=== PATIENT | female | born 1990 | race Caucasian/White ===

== ENCOUNTER 2016-06-13 21:12 | Emergency (ER) | payer BC ==
[~2016-06-13] VITALS: Ht 172.7 cm; Wt 83.8 kg
[~2016-06-13 21:12] MED LIST: DPPI400; SULFAMETHOXAZOLE; TRIMETHOPRIM
[2016-06-13 21:17] VITALS: Ht 172.7 cm; Wt 83.8 kg
--- NOTE | 2016-06-13 21:52 | DIAGNOSTIC IMAGING REPORT ---
CT HEAD WITHOUT CONTRAST (CT) CLINICAL HISTORY: Head trauma. Loss of consciousness. COMPARISON STUDY: 01/11/2008 TECHNIQUE: Axial CT of the brain is performed from the vertex to the skull base. IV contrast was not administered for this examination. CT DOSE: 537.48 mGy.cm FINDINGS: No intra or extra-axial mass lesions are visualized. There is no CT evidence of acute cortical infarction. There is no evidence of midline shift. There is no acute hemorrhage. No calvarial fractures are visualized. There is no evidence of pathologic ventricular dilatation. There is no evidence of acute sinusitis IMPRESSION: Normal noncontrast head CT. Electronically signed by: Ken Banks M.D. 06/13/2016 9:50 PM Dictated Date/Time: 06/13/2016 9:49 PM
--- NOTE | 2016-06-13 22:01 | DIAGNOSTIC IMAGING REPORT ---
LEFT ANKLE MIN 3 VIEWS ROUTINE CLINICAL HISTORY: Left ankle pain status post trauma COMPARISON: None. DISCUSSION: No fractures or dislocations are visualized. The ankle mortise appears intact on these nonstress views. IMPRESSION: No fractures or dislocations identified. Electronically signed by: Ken Banks M.D. 06/13/2016 9:59 PM Dictated Date/Time: 06/13/2016 9:59 PM
--- NOTE | 2016-06-13 22:01 | DIAGNOSTIC IMAGING REPORT ---
LEFT FOOT MIN 3 VIEWS ROUTINE CLINICAL HISTORY: Left foot pain status post trauma COMPARISON: None. DISCUSSION: No fractures or dislocations are visualized. IMPRESSION: No fractures identified. Electronically signed by: Ken Banks M.D. 06/13/2016 10:00 PM Dictated Date/Time: 06/13/2016 10:00 PM
--- NOTE | 2016-06-13 22:09 | EMERGENCY ROOM VISIT NOTE ---
History First contact with patient: 21:21 Chief Complaint: HEAD INJURY (MINOR) Stated Complaint: LEFT FOOT PAIN/INJURY, RT SIDE HEAD INJURY History of Present Illness The patient is a 25 year old female who presents to the Emergency Room via private vehicle accompanied by boyfriend with complaints of "left foot pain/ injury, right side head injury ". The patient states that 1 hour prior to arrival she was sitting on her bed, with her left foot underneath her and her left foot fell asleep/became numb. She states that she went to move to allow blood flow to return to this area, and in doing so stepped onto the floor. When she stepped down the left foot was still numb, therefore she placed weight on it and it hurt a crack in the left ankle as it inverted, causing her to fall forward striking the right side of her head off of the doorknob. This was witnessed by her boyfriend, who states the patient was unconscious for 1-1/2-2 minutes after striking her head. He denies any seizure-like activity. The patient did not urinate or bite her tongue. She has minimal headache, and her head feels fuzzy. No light sensitivity. She denies any nausea, vomiting, chest pain, shortness of breath, neck pain. She denies chance of . Review of Systems A complete 10-point Review of Systems was discussed with the patient, with pertinent positives and negatives listed in the History of Present Illness. All remaining Review of Systems questions can be considered negative unless otherwise specified. Past Medical/Surgical History Cpvgm-Zdhjdlvcf-Mrfpe syndrome. Family History Diabetes, heart disease, high blood pressure, cancer, lung disease. Social History Smoking Status: Never Smoker Social History: Patient lives at home with parents, denies tobacco products but admits to alcohol use. Current/Historical Medications No Active Prescriptions or Reported Meds Allergies Coded Allergies: No Known Allergies (Unverified Allergy, Mild, 05/01/06) Physical Exam Vital Signs Date Time Temp Pulse Resp B/P Pulse Ox O2 Delivery O2 Flow Rate FiO2 06/13/16 22:35 36.8 107 18 126/72 98 06/13/16 22:06 107 18 126/72 98 Room Air 06/13/16 21:19 18 06/13/16 21:17 36.8 111 18 132/72 98 Room Air Physical Exam VITAL SIGNS - Vital signs and nursing notes were reviewed. Patient is afebrile , normotensive, slightly tachycardic at a rate of 111 bpm, and is saturating well on room air 98%. GENERAL -25-year-old female appearing her stated age. Communicates well with provider and answers questions appropriately. SKIN - Gross examination of the entire body surface demonstrates no lacerations. HEAD - Normocephalic, Atraumatic. No Tavarez's Sign or Raccoon's Eyes. No depressed skull fractures palpable. EYES - PERRL with EOMI bilaterally. Without subconjunctival hemorrhage. Palpebral conjunctiva pink and moist with no injection. EARS - No deformities of external structures noted on gross examination bilaterally. No hemotympanum present. No tympanic perforation noted. Handle of malleus, umbo, cone of light, pars tensa/flaccid all easily visualized. NOSE - Midline and without cyanosis. No epistaxis or clear watery discharge noted. Septum midline without deviation. No septal hematoma noted. No overlying ecchymosis noted. MOUTH/OROPHARYNX - Without perioral cyanosis. Tongue midline with equal elevation of palate bilaterally. No blood noted in the oropharynx. No tonsillar hypertrophy, erythema, or exudates noted. No dental fractures noted. NECK -no tenderness to palpation over the cervical spinous processes. No cervical paraspinal muscle tenderness noted. LUNGS - Chest wall symmetric without accessory muscle use, intercostals retractions, or central cyanosis. CTA B/L. No wheezes, rales, or rhonchi appreciated. CARDIAC - RRR with S1/S2. No murmur, rubs, or gallops appreciated. EXTREMITIES - No gross deformities noted of the extremities. There is tenderness palpation overlying the left lower ankle. +5/5 strength noted in UE/ LE bilaterally. NEUROLOGIC - Cranial nerves II through XII grossly intact. Sensory intact to light touch throughout. PSYCH - Pt is very pleasant and interacts well with examiner. Medical Decision & Procedures ER Provider Diagnostic Interpretation: LEFT ANKLE MIN 3 VIEWS ROUTINE CLINICAL HISTORY: Left ankle pain status post trauma COMPARISON: None. DISCUSSION: No fractures or dislocations are visualized. The ankle mortise appears intact on these nonstress views. IMPRESSION: No fractures or dislocations identified. Electronically signed by: Ken Banks M.D. 06/13/2016 9:59 PM Dictated Date/Time: 06/13/2016 9:59 PM LEFT FOOT MIN 3 VIEWS ROUTINE CLINICAL HISTORY: Left foot pain status post trauma COMPARISON: None. DISCUSSION: No fractures or dislocations are visualized. IMPRESSION: No fractures identified. Electronically signed by: Ken Banks M.D. 06/13/2016 10:00 PM Dictated Date/Time: 06/13/2016 10:[address] HEAD WITHOUT CONTRAST (CT) CLINICAL HISTORY: Head trauma. Loss of consciousness. COMPARISON STUDY: 01/11/2008 TECHNIQUE: Axial CT of the brain is performed from the vertex to the skull base. IV contrast was not administered for this examination. CT DOSE: 537.48 mGy.cm FINDINGS: No intra or extra-axial mass lesions are visualized. There is no CT evidence of acute cortical infarction. There is no evidence of midline shift. There is no acute hemorrhage. No calvarial fractures are visualized. There is no evidence of pathologic ventricular dilatation. There is no evidence of acute sinusitis IMPRESSION: Normal noncontrast head CT. Electronically signed by: Ken Banks M.D. 06/13/2016 9:50 PM Dictated Date/Time: 06/13/2016 9:49 PM Medical Decision Patient was seen and evaluated as above. After obtaining a thorough history and physical examination I did explain to the patient that I felt a CT of the head was warranted given that she lost consciousness from this head injury. I also elected to obtain radiographs of the left foot and ankle secondary to subjective and objective examination findings. Patient did not want anything for pain. CT scan, and foot and ankle radiographs were negative. Patient was told that she may have a mild concussion, however her only symptoms at this time are slight fuzziness, and a mild headache. She does have a history of concussions in the past. She was offered crutches and gel ankle splint for the left ankle however declined. She is to follow-up with her family doctor regarding today's visit. She was educated upon management of these findings, had questions prior to discharge, was educated upon worrisome symptoms in which to return, and was discharged home in good condition. In the evaluation and treatment of this patient, the following differential diagnoses were considered: Ankle Fracture, Ankle Sprain, Distal Fibula Fracture , Distal Tibia Fracture, Foot Fracture, Maisonneuve Fracture, Concussion, Contrecoup Injury, Brain Tumor, Depression, Encephalitis, Hypothyroidism, Meningitis, CVA, TIA, Migraine, Cluster Headache, Intracranial Abnormality, Intracranial Hemorrhage, Subdural Hematoma, Subarachnoid Hemorrhage, Hydrocephalus, among others. Impression Primary Impression: Closed head injury Additional Impression: Left ankle sprain Departure Information Dispostion Home / Self-Care Condition GOOD Prescriptions No Active Prescriptions or Reported Meds Referrals No Doctor, Assigned (PCP) Vikas Morales D.O. Patient Instructions My [facility] Additional Instructions You have been treated in the Emergency Department for a Closed Head Injury. CT Scan of your head/brain demonstrated no acute bleeding or other abnormalities. This does not completely rule out the risk for future damage to the brain. For pain control, you can use the following [id number]-[id number]-[id number] medicines (if >12 yo): - Regular strength (325mg/tab) Tylenol (acetaminophen) 2 tabs every 4-6 hours as needed. Do not exceed 12 tablets in a 24 hour period. Avoid taking more than 4 grams (4000 mg) of Tylenol per day. This includes any other sources of acetaminophen you may take on a regular basis. - Regular strength (200 mg/tab) Advil (ibuprofen) 1-2 tabs every 4-6 hours as needed. Do not exceed a dose of 3200 mg per day. You should relax in a quiet, dark place for the rest of the day. Avoid any possible triggers including: cigarette smoke, caffeine, nicotine, chocolate, wine, beer, loud noises or music, or bright lights. You should schedule a follow-up appointment in 2-3 days with your Primary Care Provider or established Neurologist for further evaluation and treatment of your Headache. Return to the Emergency Department if your current symptoms worsen despite treatment course outlined above, or if you develop any of the following symptoms : intractable pain despite aforementioned treatment course, visual disturbances , loss of vision, unilateral weakness or facial drooping, slurring of speech, loss of coordination, or loss of consciousness. ANKLE: You have been treated in the Emergency Department for a left Ankle injury. If this is a recent injury (<24 hrs), ice can be applied to the area of pain for the first 3 days to help decrease pain and inflammation. You have been provided the number for an Orthopaedic Surgeon. You should call this number as soon as possible to establish a follow-up visit from today's Emergency Department visit. Keep the ankle brace/splint in place until cleared by Orthopedics. You have respectfully declined crutches and a brace. Return to the Emergency Department if your current symptoms worsen despite treatment course outlined above, or if you develop any of the following symptoms : intractable pain despite aforementioned treatment course or new onset of numbness or tingling of the foot. Problem Qualifiers Primary Impression: Closed head injury Encounter type: initial encounter Qualified Codes: S09.90XA - Unspecified injury of head, initial encounter Additional Impression: Left ankle sprain Encounter type: initial encounter
[2016-06-13 22:35] VITALS: BP 126/72; PULSE 107; TEMP 36.8; O2SAT 98
== END 2016-06-13 22:35 | disposition home or self-care (01) ==
LOC: C.EDB 21:13 → C.EDD 22:35
DX: S09.90XA Unspecified injury of head, initial encounter (principal); S93.402A Sprain of unspecified ligament of left ankle, initial encounter; W18.39XA Other fall on same level, initial encounter; Y92.003 Bedroom of unspecified non-institutional (private) residence as the place of occurrence of the external cause; Y99.8 Other external cause status

== ENCOUNTER 2018-12-19 07:35 | Inpatient (IN) ==
[2018-12-19] MEDS ORDERED: OXYTOCIN 30 UNITS/500 ML BAG IV PRN ×2 (07:48→17:42)
[2018-12-19 08:06] LABS: Hemoglobin 9.4 g/dL (12.0-16.0); Mean Corpuscular Hemoglobin 24.9 pg (25-34); Mean Corpuscular Volume 79.4 fL (80-100); Platelet Count 225 K/uL (130-400); RDW Coefficient of Variation 14.9 % (11.5-14.5); RDW Standard Deviation 42.6 fL (36.4-46.3); Red Blood Count 3.78 M/uL (4.2-5.4); White Blood Count 11.82 K/uL (4.8-10.8)
[2018-12-19 08:07] LABS: Mean Corpuscular Hgb Conc 31.3 g/dL (32-36)
[2018-12-19] MEDS: LACTATED RINGER'S 1,000 ML IV PRN ×2 (08:25→09:18)
[2018-12-19] MEDS ORDERED: BUPIVACAINE 0.25% 30 ML VIAL ONE (08:37)
[2018-12-19] MEDS ORDERED: fentaNYL citrate 100 MCG/2 ML VIAL ONE (08:38)
[2018-12-19] MEDS ORDERED: ePHEDrine sulfate 50 MG/ML AMP ONE (08:38)
[2018-12-19] MEDS ORDERED: fentaNYL 2MCG/ML ROPIV 1.25MG/ML 100 ML BAG EPI ONE ×2 (08:38→15:53)
--- NOTE | 2018-12-19 08:43 | History & Physical Report ---
Date of Service December 19, 2018 Assessment & Plan (1) : not in active labor at this time admit to L&D, epidural upon request expectant management (2) Supervision of normal first : (3) Rh negative status during : History of Present Illness Primary Care Provider: Severino Maurer MD Ms Welsh is a 28 y/o female ; at 39 3/7 weeks; no complications with this . frequently attended OB appointments with [facility]; started feeling contractions around 4am this morning following loss of mucus plug; has had good movement; no additional fluid loss; no vaginal blood loss Labs: blood type: A negative Rh: received rhogam in office antibody screen: negative H.4 Hct: 30 WBC: 11.8 Plt: 225 Rubella: negative VDRL/RPR: negative Gonorrhea: negative Chlamydia: negative HIV: negative HbSAg: negative GBS: negative normal Glucose tolerance test at 28 weeks Allergies Allergy/AdvReac Type Severity Reaction Status Date / Time No Known Allergies Allergy Mild Verified 12/16/18 11:09 Home Medications Home Medications Medication Instructions Recorded Confirmed Type PNV cmb#95-ferrous fumarate-FA 1 tab PO HS 09/26/18 12/19/18 History [] Past Med/Surg History Medical History No pertinent past medical history Surgical History History of colposcopy with cervical biopsy History of oral surgery Family History Aunt No problems noted. Mother Hypertension Thyroid disease Uncle Family history of diabetes mellitus Other Breast cancer Colorectal cancer Stroke Social History Preferred Language: [place] Communication Ability: Effective Beliefs That Will Affect Care: None marital status: Current Living Situation: Spouse Other Information That Helps Us Care for You: No Feels Safe at Home: Yes Safety Concerns: Feels Safe At This Time Smoking Status: Never smoker Do You Dip or Chew Tobacco: No ; Second Hand Exposure: No ; Hx Alcohol Use: No Hx Substance Use: No Review of Systems Review of Systems: Constitutional: denies fever; chills; sweats; headache Respiratory: denies shortness of breath, difficulty breathing Cardiac: denies chest pain; palpitations; chest pressure Breast: denies breast pain : denies dysuria Physical Exam Physical Exam: General: alert; oriented; no acute distress Cardiac: RRR; no m/g/r Respiratory: CTAB a/p; no wheezes/rales/rhonchi; no increased work of breathing; symmetrical chest rise; no respiratory distress Genitourinary: Manual OB Exam: + cervical dilation 3 cm, + cervical effacement 90% and + station -1 OB Exam Monitor Tracing: + external FHT monitor used and + category I Results & Data Vital Signs (Past 12 Hours) Vital Signs Temp Pulse Resp BP 12/19/18 08:05 68 130/84 12/19/18 07:48 36.5 C 20 Laboratory Results 12/19/18 Range/Units 07:53 WBC 11.82 H (4.8-10.8) K/uL RBC 3.78 L (4.2-5.4) M/uL Hgb 9.4 L (12.0-16.0) g/dL Hct 30.0 L (37-47) % MCV 79.4 L (80-100) fL MCH 24.9 L (25-34) pg MCHC 31.3 L (32-36) g/dL RDW Std Deviation 42.6 (36.4-46.3) fL RDW Coeff of Michelle 14.9 H (11.5-14.5) % Plt Count 225 (130-400) K/uL MPV 11.0 H (7.4-10.4) fL 12/19/18 Range/Units 07:53 WBC 11.82 H (4.8-10.8) K/uL RBC 3.78 L (4.2-5.4) M/uL Hgb 9.4 L (12.0-16.0) g/dL Hct 30.0 L (37-47) % MCV 79.4 L (80-100) fL MCH 24.9 L (25-34) pg MCHC 31.3 L (32-36) g/dL RDW Std Deviation 42.6 (36.4-46.3) fL RDW Coeff of Michelle 14.9 H (11.5-14.5) % Plt Count 225 (130-400) K/uL MPV 11.0 H (7.4-10.4) fL Medications Administered Current Inpatient Medications Diphenhydramine HCl (Benadryl) 25 mg IV Q6H PRN PRN Reason: Itching Stop: 12/20/18 09:28 Ephedrine Sulfate (Ephedrine Sulfate) 10 mg IV Q5M PRN PRN Reason: Hypotension Stop: 12/20/18 09:28 Oxytocin (Pitocin) 30 units in 500 mls @ 333.333 mls/hr IV .Q1H30M PRN; Protocol PRN Reason: Bleeding Control Stop: 01/18/19 07:47 Lactated Ringer's (Lr) 1,000 mls @ 125 mls/hr IV .Q8H PRN; Protocol PRN Reason: L&D Protocol Stop: 12/21/18 07:47 Last Admin: 12/19/18 09:18 Dose: 999 mls/hr Documented by: Naloxone HCl 1 mg/ Sodium (Chloride) 1,002.5 mls @ 50 mls/hr IV .Q20H3M PRN PRN Reason: itching or nausea Stop: 12/20/18 09:28 Nalbuphine HCl (Nubain) 5 mg IV Q10M PRN PRN Reason: itching or nausea Stop: 12/20/18 09:28 Naloxone HCl (Narcan) 0.1 mg IV UD PRN PRN Reason: respiratory depression Stop: 12/20/18 09:28 Ropivacaine (Epidural (L&D)) 100 ml EPI PRN PRN; Protocol PRN Reason: Pain R/T Labor Stop: 12/20/18 09:28 Code Status & VTE Plan VTE Prophylaxis Plan VTE Prophylaxis will be ordered: No Supervising Physician Co-Signing Physician Notes Resident Physician Supervision Note: I was present with Dr. Lobo during the history and exam. I discussed the case with the resident and agree with the findings and plan as documented in the note. Any exceptions or clarifications are listed here: 28yo @ 39 3/7 in spontaneous labor. Admit to L&D, [facility]/[place]. IV fluids. Labs. OK for epidural when she desires. Documented By: Ines Ellington DO PG Care Time/CCT Total # of Minutes Spent Total Time Spent with Patient: Total time spent is greater than 50% in coordination of care (as documented) at patient's floor/unit and/or counseling patient: Resident Activity Tracking Resident Involvement: Resident Care Provided Care Provided: OB Delivery
--- NOTE | 2018-12-19 09:28 | Anesthesiology Consultation ---
Date of Service December 19, 2018 Assessment & Plan Chart Review Chart Review: Acceptable Risk for Labor Epidural Consults Requested none History Height/Weight Height: 5 ft 6 in Weight: 89.358 kg Allergies Allergy/AdvReac Type Severity Reaction Status Date / Time No Known Allergies Allergy Mild Verified 12/16/18 11:09 Medications Home Medications Medication Instructions Recorded Confirmed Last Taken PNV cmb#95-ferrous fumarate-FA 1 tab PO HS 09/26/18 12/19/18 12/18/18 09:00 [] Active Medications Generic Name Dose Route Start Last Admin Trade Name Freq PRN Reason Stop Dose Admin Lactated Ringer's 1,000 mls @ 125 mls/hr 12/19/18 07:48 12/19/18 09:18 Lr IV 12/21/18 07:47 999 mls/hr .Q8H PRN Administration L&D Protocol Protocol Past Medical History Medical History No pertinent past medical history Past Family History Family History Aunt No problems noted. Mother Hypertension Thyroid disease Uncle Family history of diabetes mellitus Other Breast cancer Colorectal cancer Stroke Past Surgical History Surgical History History of colposcopy with cervical biopsy History of oral surgery Social History Smoking Status: Never smoker Do You Dip or Chew Tobacco: No Hx Alcohol Use: No Alcohol type: beer and wine alcohol intake frequency: a few times a week Hx Substance Use: No Physical Exam Vital Signs Last Vital Signs Temp 36.7 C 12/19/18 08:52 Pulse 72 12/19/18 09:25 Resp 20 12/19/18 09:22 BP 116/64 12/19/18 09:24 Pulse Ox 98 12/19/18 09:25 Testing Laboratory Results 12/19/18 07:53
[2018-12-19] MEDS ORDERED: NALOXONE HCL 1 MG in SODIUM CHLORIDE 0.9% 1000ML 1,000 ML IV PRN (09:29)
[2018-12-19] MEDS ORDERED: DiphenhydrAMINE HCL 50 MG/ML VIAL IV PRN (09:29)
[2018-12-19] MEDS ORDERED: ePHEDrine sulfate 50 MG/ML AMP IV PRN (09:29)
[2018-12-19] MEDS ORDERED: NALBUPHINE HCL INJ 10 MG/ML AMP IV PRN (09:29)
[2018-12-19] MEDS ORDERED: fentaNYL 2MCG/ML ROPIV 1.25MG/ML 100 ML BAG EPI PRN (09:29)
[2018-12-19] MEDS ORDERED: NALOXONE HCL 0.4 MG/1 ML VIAL/CARP IV PRN (09:29)
[2018-12-19] MEDS ORDERED: ONDANSETRON INJ 2 MG/ML 2 ML VIAL IV PRN (14:03)
--- NOTE | 2018-12-19 14:52 | Labor Progress Brief Note ---
Date of Service December 19, 2018 Subjective Reason For Note: Routine Evaluation comfortable with epidural Assessment & Plan (1) Supervision of normal first : - tracing Cat II - doing well Physical Exam Genitourinary: Cervix: 9/100/(+)1, AROM clear Results & Data Vital Signs (Past 12 Hours) Vital Signs Temp Pulse Resp BP Pulse Ox 12/19/18 14:46 90 139/74 12/19/18 14:45 86 94 12/19/18 14:44 83 86 L 12/19/18 14:40 76 98 12/19/18 14:38 90 85 L 12/19/18 14:35 76 95 12/19/18 14:33 84 86 L 12/19/18 14:30 71 136/78 99 12/19/18 14:25 77 100 12/19/18 14:21 91 H 89 L 12/19/18 14:20 78 99 12/19/18 14:16 76 131/73 12/19/18 14:15 73 98 12/19/18 14:10 86 91 12/19/18 14:05 79 86 L 12/19/18 14:00 87 95 12/19/18 13:58 87 85 L 12/19/18 13:55 74 96 12/19/18 13:50 68 98 12/19/18 13:46 68 135/83 12/19/18 13:45 72 100 12/19/18 13:40 67 99 12/19/18 13:35 76 97 12/19/18 13:31 70 139/78 12/19/18 13:30 65 99 12/19/18 13:25 67 99 12/19/18 13:20 67 100 12/19/18 13:17 65 144/84 H 12/19/18 13:15 79 99 12/19/18 13:10 69 99 12/19/18 13:05 62 98 12/19/18 13:01 65 139/80 12/19/18 13:00 75 98 12/19/18 12:55 72 100 12/19/18 12:50 71 98 12/19/18 12:46 71 148/83 H 12/19/18 12:45 86 99 12/19/18 12:40 65 100 12/19/18 12:35 76 95 12/19/18 12:31 66 138/81 12/19/18 12:30 64 98 12/19/18 12:25 71 97 12/19/18 12:22 84 85 L 12/19/18 12:20 80 94 12/19/18 12:17 73 109/70 12/19/18 12:15 89 94 12/19/18 12:12 77 86 L 12/19/18 12:10 74 97 12/19/18 12:05 76 98 12/19/18 12:01 79 84 L 12/19/18 12:00 76 18 119/70 97 12/19/18 11:55 78 99 12/19/18 11:50 78 99 12/19/18 11:46 74 128/68 12/19/18 11:45 75 99 12/19/18 11:40 74 99 12/19/18 11:35 74 99 12/19/18 11:31 74 121/71 12/19/18 11:30 79 99 12/19/18 11:28 98.2 F 20 12/19/18 11:25 82 97 12/19/18 11:20 73 98 12/19/18 11:16 71 136/79 12/19/18 11:15 78 93 12/19/18 11:13 67 88 L 12/19/18 11:10 57 L 96 12/19/18 11:05 59 L 96 12/19/18 11:00 74 106/63 97 12/19/18 10:55 61 96 12/19/18 10:50 61 96 12/19/18 10:46 55 L 106/62 12/19/18 10:45 59 L 97 12/19/18 10:40 59 L 100 12/19/18 10:35 62 100 12/19/18 10:30 62 122/73 99 12/19/18 10:25 75 99 12/19/18 10:20 60 98 12/19/18 10:15 60 113/69 98 12/19/18 10:10 61 99 12/19/18 10:05 69 99 12/19/18 10:01 63 127/88 12/19/18 10:00 70 97 12/19/18 09:55 66 96 12/19/18 09:50 78 97 12/19/18 09:45 67 120/70 97 12/19/18 09:42 91 H 113/67 12/19/18 09:40 79 99 12/19/18 09:39 71 116/70 12/19/18 09:35 87 97 12/19/18 09:32 64 112/64 12/19/18 09:30 75 109/61 99 12/19/18 09:28 70 18 118/64 12/19/18 09:26 71 115/65 12/19/18 09:25 72 98 12/19/18 09:24 73 116/64 12/19/18 09:22 73 20 113/68 12/19/18 09:20 73 126/81 98 12/19/18 09:18 75 124/76 12/19/18 09:16 75 124/77 12/19/18 09:15 77 99 12/19/18 09:14 83 122/74 12/19/18 09:12 97 H 92 12/19/18 09:10 85 98 12/19/18 09:05 67 99 12/19/18 09:00 60 100 12/19/18 08:58 79 90 12/19/18 08:55 70 100 12/19/18 08:52 98.1 F 60 20 127/79 12/19/18 08:50 70 99 12/19/18 08:05 68 130/84 12/19/18 07:48 97.7 F 20
--- NOTE | 2018-12-19 16:20 | Labor Progress Brief Note ---
Date of Service December 19, 2018 Assessment & Plan (1) Supervision of normal first : -tracing Cat II - begin 2nd stage Physical Exam Genitourinary: Cervix: Complete/(+)2 Results & Data Vital Signs (Past 12 Hours) Vital Signs Temp Pulse Resp BP Pulse Ox 12/19/18 16:17 84 86 L 12/19/18 16:16 84 146/116 H 12/19/18 16:15 91 H 98 12/19/18 16:10 92 H 89 L 12/19/18 16:09 87 89 L 12/19/18 16:05 78 99 12/19/18 16:01 79 135/73 12/19/18 16:00 79 96 12/19/18 15:56 98.4 F 80 20 87 L 12/19/18 15:55 77 95 12/19/18 15:50 81 98 12/19/18 15:45 73 133/77 99 12/19/18 15:40 76 97 12/19/18 15:35 82 96 12/19/18 15:31 75 124/71 12/19/18 15:30 79 94 12/19/18 15:25 72 97 12/19/18 15:20 82 97 12/19/18 15:16 73 131/74 12/19/18 15:15 73 97 12/19/18 15:10 71 98 12/19/18 15:05 70 97 12/19/18 15:00 99 H 125/73 98 12/19/18 14:57 97 H 88 L 12/19/18 14:55 84 94 12/19/18 14:51 106 H 88 L 12/19/18 14:50 73 98 12/19/18 14:46 90 139/74 12/19/18 14:45 86 94 12/19/18 14:44 83 86 L 12/19/18 14:40 76 98 12/19/18 14:38 90 85 L 12/19/18 14:35 76 95 12/19/18 14:33 84 86 L 12/19/18 14:30 71 136/78 99 12/19/18 14:25 77 100 12/19/18 14:21 91 H 89 L 12/19/18 14:20 78 99 12/19/18 14:16 76 131/73 12/19/18 14:15 73 98 12/19/18 14:10 86 91 12/19/18 14:05 79 86 L 12/19/18 14:00 87 95 12/19/18 13:58 87 85 L 12/19/18 13:55 74 96 12/19/18 13:50 68 98 12/19/18 13:46 68 135/83 12/19/18 13:45 72 100 12/19/18 13:40 67 99 12/19/18 13:35 76 97 12/19/18 13:31 70 139/78 12/19/18 13:30 65 99 12/19/18 13:25 67 99 12/19/18 13:20 67 100 12/19/18 13:17 65 144/84 H 12/19/18 13:15 79 99 12/19/18 13:10 69 99 12/19/18 13:05 62 98 12/19/18 13:01 65 139/80 12/19/18 13:00 75 98 12/19/18 12:55 72 100 12/19/18 12:50 71 98 12/19/18 12:46 71 148/83 H 12/19/18 12:45 86 99 12/19/18 12:40 65 100 12/19/18 12:35 76 95 12/19/18 12:31 66 138/81 12/19/18 12:30 64 98 12/19/18 12:25 71 97 12/19/18 12:22 84 85 L 12/19/18 12:20 80 94 12/19/18 12:17 73 109/70 12/19/18 12:15 89 94 12/19/18 12:12 77 86 L 12/19/18 12:10 74 97 12/19/18 12:05 76 98 12/19/18 12:01 79 84 L 12/19/18 12:00 76 18 119/70 97 12/19/18 11:55 78 99 12/19/18 11:50 78 99 12/19/18 11:46 74 128/68 12/19/18 11:45 75 99 12/19/18 11:40 74 99 12/19/18 11:35 74 99 12/19/18 11:31 74 121/71 12/19/18 11:30 79 99 12/19/18 11:28 98.2 F 20 12/19/18 11:25 82 97 12/19/18 11:20 73 98 12/19/18 11:16 71 136/79 12/19/18 11:15 78 93 12/19/18 11:13 67 88 L 12/19/18 11:10 57 L 96 12/19/18 11:05 59 L 96 12/19/18 11:00 74 106/63 97 12/19/18 10:55 61 96 12/19/18 10:50 61 96 12/19/18 10:46 55 L 106/62 12/19/18 10:45 59 L 97 12/19/18 10:40 59 L 100 12/19/18 10:35 62 100 12/19/18 10:30 62 122/73 99 12/19/18 10:25 75 99 12/19/18 10:20 60 98 12/19/18 10:15 60 113/69 98 12/19/18 10:10 61 99 12/19/18 10:05 69 99 12/19/18 10:01 63 127/88 12/19/18 10:00 70 97 12/19/18 09:55 66 96 12/19/18 09:50 78 97 12/19/18 09:45 67 120/70 97 12/19/18 09:42 91 H 113/67 12/19/18 09:40 79 99 12/19/18 09:39 71 116/70 12/19/18 09:35 87 97 12/19/18 09:32 64 112/64 12/19/18 09:30 75 109/61 99 12/19/18 09:28 70 18 118/64 12/19/18 09:26 71 115/65 12/19/18 09:25 72 98 12/19/18 09:24 73 116/64 12/19/18 09:22 73 20 113/68 12/19/18 09:20 73 126/81 98 12/19/18 09:18 75 124/76 12/19/18 09:16 75 124/77 12/19/18 09:15 77 99 12/19/18 09:14 83 122/74 12/19/18 09:12 97 H 92 12/19/18 09:10 85 98 12/19/18 09:05 67 99 12/19/18 09:00 60 100 12/19/18 08:58 79 90 12/19/18 08:55 70 100 12/19/18 08:52 98.1 F 60 20 127/79 12/19/18 08:50 70 99 12/19/18 08:05 68 130/84 12/19/18 07:48 97.7 F 20
--- NOTE | 2018-12-19 16:55 | Delivery Summary ---
Vaginal Delivery Summary Date of Service December 19, 2018 Findings: Viable female with Apgars of 9 and 10 baby delivered over an intact perineum cord blood samples obtained placenta delivered spontaneously, estimated blood loss 300 cc. Labor course: Ms Welsh is a 28 y/o female ; at 39 3/7 weeks; no complications with this . frequently attended OB appointments with [facility] group; started feeling contractions around 4am this morning following loss of mucus plug; has had good movement; no additional fluid loss; no vaginal blood loss Labs: blood type: A negative Rh: received rhogam in office antibody screen: negative H.4 Hct: 30 WBC: 11.8 Plt: 225 Rubella: negative VDRL/RPR: negative Gonorrhea: negative Chlamydia: negative HIV: negative HbSAg: negative GBS: negative normal Glucose tolerance test at 28 weeks Upon admission patient was 3 cm dilated with a category 2 tracing. The patient requested and received an epidural from anesthesia. Over the next 5 hours the patient progressed to full dilatation. Artificial rupture of membranes for clear fluid. She began her second stage. She pushed for approximately 15 minutes delivering the viable female . Cord blood samples were obtained placenta delivered spontaneously. Inspection of the perineum showed superficial lacerations but nothing needing repair. Estimated blood loss 300 cc. Sponge and needle count was correct.
--- NOTE | 2018-12-19 17:20 | Anesthesia Procedure Note ---
Date of Service December 19, 2018 Anesthesia Post Epidural Note Vital Signs Vital Signs: Temp Pulse Resp BP Pulse Ox 36.9 C 79 20 144/67 H 95 12/19/18 15:56 12/19/18 17:15 12/19/18 15:56 12/19/18 17:15 12/19/18 17:05 Pain Intensity Abdomen: Pain Intensity: 7 Notes Mental Status: alert / awake / arousable Nausea / Vomiting: adequately controlled Pain: adequately controlled Airway Patency, RR, SpO2: stable & adequate BP & HR: stable & adequate Hydration State: stable & adequate Neuraxial Anesthesia: was administered and sensory block is resolving Anesthetic Complications: no major complications apparent and Pt Satisfied with anesthetic care Epidural: Removed without complications and With tip intact
[2018-12-19] MEDS ORDERED: DIPHTHERIA/TETANUS/PERTUSSIS 0.5 ML SYR/VIAL IM ONE (17:42)
[2018-12-19] MEDS ORDERED: SUPERCREAM 0.870% 15 GM JAR EXT PRN (17:42)
[2018-12-19] MEDS ORDERED: OXYCODONE/ACETAMINOPHEN 5mg/325mg TAB PO PRN (17:42)
[2018-12-19] MEDS ORDERED: OXYTOCIN 20 UNITS in LACTATED RINGER'S 1,000 ML IV SCH (17:42)
[2018-12-19] MEDS ORDERED: BENZOCAINE 20% AER SPR 82.5 GM CAN EXT PRN (17:42)
[2018-12-19] MEDS ORDERED: HYDROCORTISONE ACETATE 25 MG SUPP PR PRN (17:42)
[2018-12-20 06:42] LABS: Hematocrit (blood only) 25.2 % (37-47); Mean Corpuscular Hemoglobin 25.3 pg (25-34); Mean Corpuscular Hgb Conc 31.7 g/dL (32-36); Mean Corpuscular Volume 79.7 fL (80-100); Mean Platelet Volume 11.3 fL (7.4-10.4); Platelet Count 192 K/uL (130-400); RDW Standard Deviation 43.6 fL (36.4-46.3); Red Blood Count 3.16 M/uL (4.2-5.4); White Blood Count 12.36 K/uL (4.8-10.8)
--- NOTE | 2018-12-20 07:05 | Obstetrical Progress Note ---
Date of Service <Jc Lobo MD - Last Filed: 12/20/18 07:05> December 20, 2018 Assessment & Plan <Jc Lobo MD - Last Filed: 12/20/18 07:05> (1) : 12/19 PPD#1 feels well, voiding well, ambulating well within room will continue routine care after discharge will have 6 week follow-up Subjective <Jc Lobo MD - Last Filed: 12/20/18 07:05> Ms Welsh is a 28 y/o female ; PPD #1 following spontaneous vaginal delivery at 39+ weeks; doing well this morning; having some mild abdominal cramping/pain; voiding well; tolerating meals overnight; and able to ambulate some; some persistent spotting with intermittent improvement this morning. Review of Systems Constitutional: denies fever; chills; sweats; headache Respiratory: denies shortness of breath, difficulty breathing Cardiac: denies chest pain; palpitations; chest pressure Breast: denies breast pain : denies dysuria Physical Exam <Jc Lobo MD - Last Filed: 12/20/18 07:05> General: alert; oriented; no acute distress Cardiac: RRR; no m/g/r Respiratory: CTAB a/p; no wheezes/rales/rhonchi; no increased work of breathing; symmetrical chest rise; no respiratory distress Abdomen: soft; NT/ND; bowel sounds positive Uterus: uterine fundus firm; palpable 1cm below umbilicus Lower extrem: no lower extremity edema or swelling; no deep calf pain; Lesly's sign negative b/l Results & Data <Jc Lobo MD - Last Filed: 12/20/18 07:05> Vital Signs (Past 12 Hours) Vital Signs Temp Pulse Pulse Resp BP BP 12/20/18 03:50 36.4 C L 73 18 115/76 12/20/18 01:00 36.6 C 68 18 111/74 12/19/18 20:45 37.0 C 82 16 110/66 12/19/18 20:16 37.0 C 82 16 110/66 12/19/18 19:46 76 126/74 12/19/18 19:16 86 116/61 12/19/18 19:05 37.1 C 83 16 114/65 Laboratory Results 12/20/18 12/19/18 Range/Units 06:11 07:53 WBC 12.36 H 11.82 H (4.8-10.8) K/uL RBC 3.16 L 3.78 L (4.2-5.4) M/uL Hgb 8.0 L 9.4 L (12.0-16.0) g/dL Hct 25.2 L 30.0 L (37-47) % MCV 79.7 L 79.4 L (80-100) fL MCH 25.3 24.9 L (25-34) pg MCHC 31.7 L 31.3 L (32-36) g/dL RDW Std Deviation 43.6 42.6 (36.4-46.3) fL RDW Coeff of Michelle 15.0 H 14.9 H (11.5-14.5) % Plt Count 192 225 (130-400) K/uL MPV 11.3 H 11.0 H (7.4-10.4) fL Medications Administered Current Inpatient Medications Benzocaine (Dermoplast Pain Relieving [place]) 1 appln EXT PRN PRN PRN Reason: Perineal Discomfort Stop: 01/18/19 17:41 Cocaine HCl (Supercream 0.870%) 1 gm EXT BID PRN PRN Reason: Hemorrhoidal Inflammation Stop: 01/02/19 17:41 Docusate Sodium (Colace) 100 mg PO DAILY@08,21 [facility] Stop: 01/19/19 20:59 Ferrous Sulfate (Feosol) 325 mg PO DAILY@08 [facility] Stop: 01/19/19 07:59 Hydrocortisone (Anusol Hc) 25 mg [place] BID PRN PRN Reason: Hemorrhoidal Inflammation Stop: 01/18/19 17:41 Oxytocin 20 units/ Lactated (Ringer's) 1,002 mls @ 125 mls/hr IV .Q8H1M [facility] Stop: 01/18/19 17:41 Last Admin: 12/19/18 19:20 Dose: Not Given Documented by: Oxytocin (Pitocin) 30 units in 500 mls @ 333.333 mls/hr IV .Q1H30M PRN; Protocol PRN Reason: Bleeding Control Stop: 01/18/19 17:41 Ibuprofen (Motrin) 600 mg PO Q4H PRN PRN Reason: Pain/MUÑOZ/Cramping/Fever Stop: 01/18/19 17:41 Oxycodone/Acetaminophen (Percocet 5mg/325mg) 1 tab PO Q4H PRN PRN Reason: Pain not relieved by... Stop: 01/02/19 17:41 Prenat Multivit/[place]/Iron/Folic Ac ( Vitamin) 1 tab PO DAILY@08 [facility] Stop: 01/19/19 07:59 <Virgilio Gomez Jr, MD, FACOG - Last Filed: 12/20/18 08:00> Co-Signing Physician Notes Resident Physician Supervision Note: I was present with Dr. Lobo during the history and exam. I discussed the case with the resident and agree with the findings and plan as documented in the note. Any exceptions or clarifications are listed here: Routine pp care, doing well Documented By: Virgilio Gomez Jr, MD, FACOG Resident Activity Tracking <Jc Lobo MD - Last Filed: 12/20/18 07:05> Resident Involvement: Resident Care Provided Care Provided: OB Delivery
[2018-12-20] MEDS: PRENATAL VITAMIN 1 TAB PO SCH (08:48)
[2018-12-20] MEDS: FERROUS SULFATE 325 MG TAB PO SCH (08:48)
[2018-12-20] MEDS: IBUPROFEN 600 MG TAB PO PRN (20:13)
[2018-12-20] MEDS: DOCUSATE SODIUM 100 MG CAP PO SCH (20:14)
--- NOTE | 2018-12-21 06:09 | Obstetrical Progress Note ---
Date of Service <Jc Lobo MD - Last Filed: 12/21/18 06:49> December 21, 2018 Assessment & Plan <Jc Lobo MD - Last Filed: 12/21/18 06:49> (1) : 12/19 PPD#2 feels well, voiding well, ambulating well within room will continue routine care after discharge will have 6 week follow-up Subjective <Jc Lobo MD - Last Filed: 12/21/18 06:49> Ms Welsh is a 28 y/o female ; PPD #2 following spontaneous vaginal delivery at 39+ weeks; doing well this morning; having some mild abdominal cramping/pain; voiding well; tolerating meals overnight; and able to ambulate some; some persistent spotting with intermittent improvement this morning. Review of Systems Constitutional: denies fever; chills; sweats; headache Respiratory: denies shortness of breath, difficulty breathing Cardiac: denies chest pain; palpitations; chest pressure Breast: denies breast pain : denies dysuria Physical Exam <Jc Lobo MD - Last Filed: 12/21/18 06:49> General: alert; oriented; no acute distress Cardiac: RRR; no m/g/r Respiratory: CTAB a/p; no wheezes/rales/rhonchi; no increased work of breathing; symmetrical chest rise; no respiratory distress Abdomen: soft; NT/ND; bowel sounds positive Uterus: uterine fundus firm; palpable 3cm below umbilicus Lower extrem: no lower extremity edema or swelling; no deep calf pain; Lesly's sign negative b/l Results & Data <Jc Lobo MD - Last Filed: 12/21/18 06:49> Laboratory Results 12/20/18 Range/Units 06:11 WBC 12.36 H (4.8-10.8) K/uL RBC 3.16 L (4.2-5.4) M/uL Hgb 8.0 L (12.0-16.0) g/dL Hct 25.2 L (37-47) % MCV 79.7 L (80-100) fL MCH 25.3 (25-34) pg MCHC 31.7 L (32-36) g/dL RDW Std Deviation 43.6 (36.4-46.3) fL RDW Coeff of Michelle 15.0 H (11.5-14.5) % Plt Count 192 (130-400) K/uL MPV 11.3 H (7.4-10.4) fL Medications Administered Current Inpatient Medications Benzocaine (Dermoplast Pain Relieving [place]) 1 appln EXT PRN PRN PRN Reason: Perineal Discomfort Stop: 01/18/19 17:41 Cocaine HCl (Supercream 0.870%) 1 gm EXT BID PRN PRN Reason: Hemorrhoidal Inflammation Stop: 01/02/19 17:41 Docusate Sodium (Colace) 100 mg PO DAILY@08, [facility] Stop: 01/19/19 20:59 Last Admin: 12/20/18 20:14 Dose: 100 mg Documented by: Ferrous Sulfate (Feosol) 325 mg PO DAILY@08 [facility] Stop: 01/19/19 07:59 Last Admin: 12/20/18 08:48 Dose: 325 mg Documented by: Hydrocortisone (Anusol Hc) 25 mg [place] BID PRN PRN Reason: Hemorrhoidal Inflammation Stop: 01/18/19 17:41 Oxytocin 20 units/ Lactated (Ringer's) 1,002 mls @ 125 mls/hr IV .Q8H1M [facility] Stop: 01/18/19 17:41 Last Admin: 12/19/18 19:20 Dose: Not Given Documented by: Oxytocin (Pitocin) 30 units in 500 mls @ 333.333 mls/hr IV .Q1H30M PRN; Protocol PRN Reason: Bleeding Control Stop: 01/18/19 17:41 Ibuprofen (Motrin) 600 mg PO Q4H PRN PRN Reason: Pain/MUÑOZ/Cramping/Fever Stop: 01/18/19 17:41 Last Admin: 12/20/18 20:13 Dose: 600 mg Documented by: Oxycodone/Acetaminophen (Percocet 5mg/325mg) 1 tab PO Q4H PRN PRN Reason: Pain not relieved by... Stop: 01/02/19 17:41 Prenat Multivit/[place]/Iron/Folic Ac ( Vitamin) 1 tab PO DAILY@08 [facility] Stop: 01/19/19 07:59 Last Admin: 12/20/18 08:48 Dose: 1 tab Documented by: <Sarthak Gomes MD - Last Filed: 12/21/18 07:12> Co-Signing Physician Notes Agree with the above findings and plan. Doing well. Requesting discharge today. Patient meeting all goals. Stable for discharge Resident Activity Tracking <Jc Lobo MD - Last Filed: 12/21/18 06:49> Resident Involvement: Resident Care Provided Care Provided: OB Delivery
[2018-12-21 06:34] LABS: Hematocrit (blood only) 28.5 % (37-47); Hemoglobin 8.8 g/dL (12.0-16.0)
[2018-12-21] MEDS: PRENATAL VITAMIN 1 TAB PO SCH (08:07)
[2018-12-21] MEDS: FERROUS SULFATE 325 MG TAB PO SCH (08:07)
[2018-12-21] MEDS: DOCUSATE SODIUM 100 MG CAP PO SCH (08:07)
[2018-12-21] MEDS: IBUPROFEN 600 MG TAB PO PRN (08:08)
== END 2018-12-21 15:15 | disposition home or self-care (01) | DRG 807 ==
LOC: OPB 07:35 → 4S1 07:37 → 4S2 20:45

== ENCOUNTER 2020-12-25 10:26 | Inpatient (IN) ==
[2020-12-25] MEDS ORDERED: OXYTOCIN 30 UNITS/500 ML BAG IV PRN ×3 (10:51→18:19)
[2020-12-25] MEDS ORDERED: LACTATED RINGER'S 1,000 ML IV PRN (10:51)
--- NOTE | 2020-12-25 10:55 | History & Physical Report ---
Date of Service December 25, 2020 Assessment & Plan (1) Encounter for supervision of normal in multigravida, antepartum: Plan: Admit to L&D. EFM/toco, labs, IV fluids. COVID swab per protocol. Anticipate . OK for epidural when she desires. History of Present Illness Chief Complaint: labor Primary Care Provider: Severino Maurer MD 30 yo @ 39 08/09, spontaneous labor. Ctx started overnight, now every few minutes. 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 Allergies Allergy/AdvReac Type Severity Reaction Status Date / Time No Known Allergies Allergy Mild Verified 12/19/20 16:17 Home Medications Medication Instructions Recorded Confirmed Type prenat.vits,yamila,lic-tdks-qryjg 1 tab PO DAILY 05/17/20 12/25/20 History breast pump #1 ea 08/09/20 12/19/20 Rx ferrous sulfate 325 mg (65 mg 325 mg PO DAILY 12/25/20 12/25/20 History iron) tablet Patient History Medical History Closed head injury Left ankle sprain Low weight gain during in third trimester No pertinent past medical history Rh negative status during Supervision of normal first Surgical History History of colposcopy with cervical biopsy History of oral surgery Family History Aunt No problems noted. Mother Hypertension Thyroid disease Uncle Family history of diabetes mellitus Grandmother Cancer Other Breast cancer Colorectal cancer Stroke Social History Smoking Status: Never smoker Second Hand Exposure: No; Hx Alcohol Use: No Hx Substance Use: No Preferred Language: Vincentian Communication Ability: Effective Beliefs That Will Affect Care: None marital status: marital status details: Magnus [phone] Current Living Situation: Spouse Current Living Situation Comment: lives with spouse and daughter, 1 dog. 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 No s/s chorio or abruption. Skin: no rashes, warm and dry Psychiatric: A+Ox3, euthymic affect Results & Data ([facility]) Vital Signs (Past 12 Hours) Vital Signs Temp Pulse Resp BP 12/25/20 10:32 87 126/68 12/25/20 10:29 36.5 C 18 Monitoring External Monitor FHT Cat 1 SVE 4/80/-2, was 1/thick in office. Coding Level of Care Code None Diagnoses Encounter for supervision of normal in multigravida, antepartum Z34.80
[2020-12-25 11:26] LABS: Hematocrit (blood only) 30.1 % (37-47); Hemoglobin 9.4 g/dL (12.0-16.0); Mean Corpuscular Hemoglobin 25.4 pg (25-34); Mean Corpuscular Hgb Conc 31.2 g/dL (32-36); Mean Corpuscular Volume 81.4 fL (80-100); Mean Platelet Volume 10.7 fL (7.4-10.4); Platelet Count 214 K/uL (130-400); RDW Coefficient of Variation 15.9 % (11.5-14.5); RDW Standard Deviation 47.1 fL (36.4-46.3); White Blood Count 9.98 K/uL (4.8-10.8)
--- NOTE | 2020-12-25 13:45 | Labor Progress Brief Note ---
Date of Service December 25, 2020 Subjective Feeling ctx. FHT Cat 1 Bala Q 4 AROM clear fluid. SVE /-1 Desires epidural. Assessment & Plan Admission and Anticipated Discharge Date Admission Date: December 25, 2020 Results & Data ([facility]) Vital Signs (Past 12 Hours) Vital Signs Temp Pulse Resp BP 12/25/20 11:12 36.5 C 87 18 126/68 12/25/20 10:40 36.5 C 87 18 126/68 12/25/20 10:32 87 126/68 12/25/20 10:29 36.5 C 18 Coding Level of Care Code None
[2020-12-25] MEDS ORDERED: BUPIVACAINE 0.25% 30 ML VIAL ONE (14:10)
[2020-12-25] MEDS ORDERED: fentaNYL citrate 100 MCG/2 ML VIAL ONE (14:10)
[2020-12-25] MEDS ORDERED: SODIUM CHLORIDE 0.9% INJ 10 ML VIAL ONE (14:10)
[2020-12-25] MEDS ORDERED: ePHEDrine sulfate 50 MG/ML AMP ONE (14:10)
[2020-12-25] MEDS ORDERED: fentaNYL 2MCG/ML ROPIVACAINE 1.25MG/ML 100 ML BAG EPI ONE (14:11)
--- NOTE | 2020-12-25 14:27 | Anesthesiology Consultation ---
Date of Service December 25, 2020 Assessment & Plan (1) Encounter for pre-operative examination: Chart Review Chart Review: Acceptable Risk for Surgery and Patient NOT seen in Pre Admission Testing Consults Requested none History Height/Weight Height: 5 ft 6 in Weight: 97.976 kg Allergies Allergy/AdvReac Type Severity Reaction Status Date / Time No Known Allergies Allergy Mild Verified 12/19/20 16:17 Medications Home Medications Medication Instructions Recorded Confirmed Last Taken prenat.vits,yamila,ydj-azas-imfve 1 tab PO DAILY 05/17/20 12/25/20 12/24/20 breast pump #1 ea 08/09/20 12/19/20 Unknown ferrous sulfate 325 mg (65 mg 325 mg PO DAILY 12/25/20 12/25/20 12/24/20 iron) tablet Active Medications Generic Name Dose Route Start Last Admin Trade Name Freq PRN Reason Stop Dose Admin Lactated Ringer's 1,000 mls @ 125 mls/hr 12/25/20 10:51 12/25/20 13:50 Lr IV 12/27/20 10:50 999 mls/hr .Q8H PRN Administration L&D Protocol Protocol Past Medical History Medical History Closed head injury Left ankle sprain Low weight gain during in third trimester No pertinent past medical history Rh negative status during Supervision of normal first Past Family History Family History Aunt No problems noted. Mother Hypertension Thyroid disease Uncle Family history of diabetes mellitus Grandmother Cancer Other Breast cancer Colorectal cancer Stroke Past Surgical History Surgical History History of colposcopy with cervical biopsy History of oral surgery Social History Smoking Status: Never smoker Hx Alcohol Use: No Alcohol type: beer and wine alcohol intake frequency: a few times a week Hx Substance Use: No Physical Exam Vital Signs Last Vital Signs Temp 36.5 C 12/25/20 11:12 Pulse 72 12/25/20 13:46 Resp 18 12/25/20 11:12 BP 133/82 12/25/20 13:46 Testing Laboratory Results 12/25/20 11:16
[2020-12-25] MEDS ORDERED: NALOXONE HCL 0.4 MG/1 ML VIAL/CARP IV PRN (15:06)
[2020-12-25] MEDS ORDERED: diphenhydrAMINE 50 MG/ML VIAL IV PRN (15:06)
[2020-12-25] MEDS ORDERED: NALBUPHINE HCL INJ 10 MG/ML AMP IV PRN (15:06)
[2020-12-25] MEDS ORDERED: fentaNYL 2MCG/ML ROPIVACAINE 1.25MG/ML 100 ML BAG EPI PRN (15:06)
[2020-12-25] MEDS ORDERED: ONDANSETRON INJ 2 MG/ML 2 ML VIAL IV PRN (15:06)
[2020-12-25] MEDS ORDERED: ePHEDrine sulfate 50 MG/ML AMP IV PRN (15:06)
[2020-12-25] MEDS ORDERED: NALOXONE HCL 1 MG in SODIUM CHLORIDE 0.9% 1000ML 1,000 ML IV PRN (15:06)
--- NOTE | 2020-12-25 16:11 | Anesthesiology Progress Note ---
Date of Service December 25, 2020 Assessment & Plan Admission and Anticipated Discharge Date Admission Date: December 25, 2020 Subjective Addendum to epidural placement record - please see record for full details of the procedure. Immediately prior to placement, I washed my hands, the patient's back was prepped with duraprep, sterile gloves were donned, and the patient's back was draped. The epidural was placed easily on the first attempt. After placement, the site was covered with tegaderm and the patient was laid flat. While cleaning up the used epidural tray after placement, I noticed a 1 cm irr egular tear in the middle finger of the left hand glove over the finger pad. I am not aware of any tear being present during the actual placement of the epidural, nor did I notice anything during placement that should have altered glove integrity. The obstetric team was notified and the patient and her support person were informed. The plan is to prophylactically give the patient a single dose of ceftriaxone (1g) after the baby is delivered as an extra precaution to decrease the risk of epidural abscess. Of note, signs and symptoms concerning for epidural abscess include back pain, fever, altered consciousness, weakness of the arms and legs, paralysis, altered sensation in arms and legs, loss of bowel or bladder control, N/V, loss of coordination. Please contact myself or another anesthesiologists with any questions or concerns. Anesthesia team will continue to follow the patient until discharge. Zo Waldron MD, PhD Anesthesiologist Physical Exam Vital Signs: Last Vital Signs Temp 36.5 C 12/25/20 11:12 Pulse 89 12/25/20 15:45 Resp 18 12/25/20 11:12 BP 119/67 12/25/20 15:45 Pulse Ox 100 12/25/20 15:45 Results & Data ([facility]) Medications Administered Lactated Ringer's (Lr) 1,000 mls @ 125 mls/hr IV .Q8H PRN; Protocol PRN Reason: L&D Protocol Stop: 12/27/20 10:50 Last Infusion: 12/25/20 14:56 Dose: 125 mls/hr Documented by: [id number] Infusion: 12/25/20 14:48 Dose: 999 mls/hr Documented by: [id number] Infusion: 12/25/20 14:20 Dose: 125 mls/hr Documented by: [id number] Admin: 12/25/20 13:50 Dose: 999 mls/hr Documented by: [id number]
--- NOTE | 2020-12-25 17:33 | Delivery Summary ---
Vaginal Delivery Summary Date of Service December 25, 2020 Vaginal Delivery Summary [facility] Vaginal Delivery Summary: Pre-delivery diagnoses: 30yo @ 39 5/7, spontaneous labor, WPW, Rh neg Post-delivery diagnoses: same Procedure: spontaneous vaginal delivery Surgeon: Ines Ellington DO Complications: none Findings: Viable female . Apgars: 8/8. Weight pending, please see nursery records. Estimated blood loss: 300ml Description of delivery: The patient progressed to complete with epidural anesthesia. She then began to push. She spontaneously vaginally delivered a viable from the cephalic presentation. The head delivered in CRISTINA position. The anterior shoulder delivered, followed by the posterior shoulder, followed by the body. Body nuchal, not reduced - delivered through. The baby was placed on mother's abdomen and a spontaneous cry was heard. Delayed cord clamping was employed, and the cord was doubly clamped and cut. Cord blood was obtained. The placenta was delivered spontaneously intact with a 3-vessel cord. The uterus and vagina were swept of clots and debris. IV pitocin was given. The uterus became firm. The cervix, vagina, and perineum were inspected and no lacerations were noted. Excellent hemostasis was observed. The mother and baby are recovering in stable and good condition in the room. Sponge and instrument counts were correct x 2. Ines Ellington DO [facility] [place] Charge Vaginal Delivery Codes: 40110 global code for the antepartum, delivery, and post- Delivery Type Details: [facility]
[2020-12-25] MEDS ORDERED: cefTRIAXone SODIUM 2,000 MG in DEXTROSE 5% 50 ML IV ONE (18:00)
--- NOTE | 2020-12-25 18:13 | Anesthesia Procedure Note ---
Date of Service December 25, 2020 Anesthesia Post Epidural Note Vital Signs Vital Signs: Temp Pulse Resp BP Pulse Ox 36.6 C 70 18 127/80 98 12/25/20 15:50 12/25/20 18:06 12/25/20 17:37 12/25/20 18:06 12/25/20 17:15 Pain Intensity Abdomen: Pain Intensity: 0 Notes Mental Status: alert / awake / arousable and participated in evaluation Nausea / Vomiting: adequately controlled Pain: adequately controlled Airway Patency, RR, SpO2: stable & adequate BP & HR: stable & adequate Hydration State: stable & adequate Neuraxial Anesthesia: was administered and sensory block is resolving Anesthetic Complications: no major complications apparent and Pt Satisfied with anesthetic care Epidural: Removed without complications and With tip intact Notes: Epidural site clean, dry and intact without evidence of edema, erythema or drainage. Order in place for ceftriaxone dose. Primary team to monitor for fever or other evidence of infection. Pt instructed to request anesthesia evaluation if she develops back pain, numbness/tingling/weakness in arms or legs, or bowel or bladder incontinence.
[2020-12-25] MEDS ORDERED: oxyCODONE/ACETAMINOPHEN 5mg/325mg TAB PO PRN (18:19)
[2020-12-25] MEDS ORDERED: ACETAMINOPHEN 325 MG TAB PO PRN (18:19)
[2020-12-25] MEDS ORDERED: SUPERCREAM 0.870% 15 GM JAR EXT PRN (18:19)
[2020-12-25] MEDS ORDERED: bisacodyL 10 MG SUPP PR PRN (18:19)
[2020-12-25] MEDS ORDERED: HYDROCORTISONE ACETATE 25 MG SUPP PR PRN (18:19)
[2020-12-25] MEDS ORDERED: BENZOCAINE 20% AER SPR 82.5 GM CAN EXT PRN (18:19)
[2020-12-25] MEDS ORDERED: DOCUSATE SODIUM 100 MG CAP PO SCH (21:00)
[2020-12-25] MEDS: IBUPROFEN 600 MG TAB PO PRN (23:29)
[2020-12-26 05:24] VITALS: O2SAT 96
[2020-12-26 05:49] LABS: Hematocrit (blood only) 30.5 % (37-47); Hemoglobin 9.4 g/dL (12.0-16.0); Mean Corpuscular Hemoglobin 25.8 pg (25-34); Mean Corpuscular Hgb Conc 30.8 g/dL (32-36); Mean Corpuscular Volume 83.6 fL (80-100); Mean Platelet Volume 10.7 fL (7.4-10.4); Platelet Count 197 K/uL (130-400); RDW Coefficient of Variation 15.9 % (11.5-14.5); Red Blood Count 3.65 M/uL (4.2-5.4); White Blood Count 9.73 K/uL (4.8-10.8)
--- NOTE | 2020-12-26 07:20 | Obstetrical Progress Note ---
Date of Service December 26, 2020 Assessment & Plan (1) Encounter for supervision of normal in multigravida, antepartum: PPD#1 doing well, no concerns. Desires discharge home today if baby ok to go. Reviewed DC instructions, followup in office in 6w. Subjective Ambulation: ambulating normally Voiding: no voiding problems Diet Tolerance:: regular diet Lochia:: Moderate Review of Systems All systems reviewed & are unremarkable except as noted in HPI & below Physical Exam Constitutional WD/WN, vitals as above no acute distress Respiratory normal respiratory effort Cardiovascular Rate/Rhythm: regular rate and regular rhythm Gastrointestinal (Abdomen) Inspection/Auscultation: abdomen normal to inspection; abdomen not distended Percussion/Palpation: abdomen soft Genitourinary OB Exam Abdomen: + fundal height Fundus: + firm; not tender Results & Data ([facility]) Vital Signs (Past 12 Hours) Vital Signs Temp Pulse Pulse Resp BP BP Pulse Ox 12/26/20 04:00 36.5 C 76 16 114/66 96 12/25/20 23:30 36.4 C L 74 16 122/76 100 12/25/20 21:25 36.7 C 66 20 113/73 100 12/25/20 19:21 75 18 115/73
--- NOTE | 2020-12-26 07:21 | Anesthesiology Progress Note ---
Date of Service December 26, 2020 Anesthesia Post Procedure Vital Signs Vital Signs: Temp Pulse Pulse Resp BP BP Pulse Ox 12/26/20 04:00 36.5 C 76 16 114/66 96 12/25/20 23:30 36.4 C L 74 16 122/76 100 12/25/20 21:25 36.7 C 66 20 113/73 100 12/25/20 19:21 75 18 115/73 12/25/20 19:06 71 112/69 12/25/20 18:52 36.7 C 90 18 118/65 12/25/20 18:36 68 118/64 12/25/20 18:22 65 18 117/61 12/25/20 18:07 70 18 127/80 12/25/20 18:06 70 127/80 12/25/20 17:52 73 18 128/79 12/25/20 17:51 73 128/79 12/25/20 17:37 74 18 124/75 12/25/20 17:22 86 18 142/62 H 12/25/20 17:15 90 98 12/25/20 17:10 92 H 100 12/25/20 17:07 86 131/71 12/25/20 17:05 93 H 100 12/25/20 17:00 89 100 12/25/20 16:55 90 100 12/25/20 16:51 78 146/83 H 12/25/20 16:50 87 100 12/25/20 16:45 78 100 12/25/20 16:40 77 100 12/25/20 16:37 62 139/78 12/25/20 16:35 59 L 100 12/25/20 16:30 72 100 12/25/20 16:25 66 100 12/25/20 16:22 75 134/82 12/25/20 16:20 69 100 12/25/20 16:15 70 100 12/25/20 16:10 78 100 12/25/20 16:08 75 134/78 12/25/20 16:05 78 100 12/25/20 16:00 78 18 100 12/25/20 15:55 78 98 12/25/20 15:50 36.6 C 83 18 126/65 100 12/25/20 15:45 89 18 119/67 100 12/25/20 15:40 75 100 12/25/20 15:39 78 113/68 12/25/20 15:35 65 125/71 100 12/25/20 15:30 67 18 100 12/25/20 15:29 74 133/74 92 12/25/20 15:25 64 132/72 100 12/25/20 15:21 76 117/77 12/25/20 15:20 75 100 12/25/20 15:15 78 18 128/79 100 12/25/20 15:13 80 91 12/25/20 15:10 70 18 100 12/25/20 15:09 71 123/72 12/25/20 15:07 78 129/75 12/25/20 15:05 81 20 124/70 100 12/25/20 15:03 71 129/71 12/25/20 15:02 87 133/82 12/25/20 15:00 88 100 12/25/20 14:59 82 110/59 L 12/25/20 14:57 75 109/59 L 12/25/20 14:55 80 116/70 100 12/25/20 14:53 81 109/81 12/25/20 14:52 87 121/77 12/25/20 14:50 81 100 12/25/20 14:49 73 155/80 H 12/25/20 14:47 94 H 96/51 L 12/25/20 14:45 75 100 12/25/20 14:40 84 100 12/25/20 14:36 85 88 L 12/25/20 14:35 73 100 12/25/20 13:46 36.9 C 72 18 133/82 12/25/20 11:12 36.5 C 87 18 126/68 12/25/20 10:40 36.5 C 87 18 126/68 12/25/20 10:32 87 126/68 12/25/20 10:29 36.5 C 18 Pain Intensity Abdomen: Pain Intensity: 4 Transfer of Care Handoff Completed per policy Notes Mental Status: alert / awake / arousable and participated in evaluation Nausea / Vomiting: adequately controlled Pain: adequately controlled Airway Patency, RR, SpO2: stable & adequate BP & HR: stable & adequate Hydration State: stable & adequate Neuraxial Anesthesia: was administered and sensory block resolved Anesthetic Complications: no major complications apparent and Pt Satisfied with anesthetic care Notes: WBC normal this morning. Patient has been up ambulating without complications this morning. Denies back pain. Denies numbness/tingling or weakness in arms or legs. No evidence of infection. No concerns at this time, but anesthesia will continue to follow until patient is discharged.
[2020-12-26] MEDS ORDERED: PRENATAL VITAMIN 1 TAB PO SCH (08:00)
[2020-12-26] MEDS: IBUPROFEN 600 MG TAB PO PRN ×2 (08:13→17:06)
[2020-12-26] MEDS ORDERED: DIPHTHERIA/TETANUS/PERTUSSIS 0.5 ML SYR/VIAL IM ONE (09:00)
[2020-12-26 14:05] VITALS: TEMP 98.4
[2020-12-26 17:10] VITALS: BP 129/84; PULSE 76
[2020-12-26] MEDS ORDERED: bisacodyL 5 MG TABEC PO SCH (20:00)
== END 2020-12-26 18:15 | disposition home or self-care (01) | DRG 807 ==
LOC: OPB 10:26 → 4S1 10:27 → 4S2 20:00